=== PATIENT | male | born 1965 | race Caucasian/White ===

== ENCOUNTER 2024-06-11 12:09 | Emergency (ER) | payer OTHER ==
[2024-06-11] MEDS: Sodium Chloride 0.9% 1,000 ML IV ONE (12:30)
[2024-06-11] MEDS: Famotidine 20 MG/2 ML SDV IVPUSH ONE (12:30)
[2024-06-11] MEDS: diphenhydrAMINE 50 MG/ML SDV IVPUSH ONE (12:30)
[2024-06-11] MEDS: methylPREDNISolone Sodium Succinate 125 MG/2 ML SDV IVPUSH ONE (12:30)
== END 2024-06-11 14:41 | disposition home or self-care (01) ==
LOC: JP.ED 12:09
DX: T63.441A Toxic effect of venom of bees, accidental (unintentional), initial encounter (principal); Z88.8 Allergy status to other drugs, medicaments and biological substances; Z91.09 Other allergy status, other than to drugs and biological substances
CPT/HCPCS: 96361; 96374; 96375; 99283; J1200; J2919; J3490; J7030